=== PATIENT | female | born 1990 | race Caucasian/White ===

== ENCOUNTER 2016-07-29 00:23 | Inpatient (IN) | payer OTHER ==
[~2016-07-29] VITALS: Ht 175.3 cm; Wt 69.0 kg
[~2016-07-29 00:23] MED LIST: PRENTAB9 PO
[2016-07-29] MEDS ORDERED: LACTATED RINGER'S 1000 ML IV STA (01:13)
[2016-07-29] MEDS ORDERED: LR 1,000 ML IV SCH (01:13)
[2016-07-29] MEDS ORDERED: OXYTOCIN 30 UNITS IN 0.9% NaCl 500ML IV BAG (J2590) As Ordered ONE (01:15)
[2016-07-29 02:07] LABS: CORD GAS ABE A -4.8; CORD GAS HCO3 A 23.1 MEQ/L; CORD GAS PCO2 A 52.1 mmHg; CORD GAS PH A 7.264 UNITS; CORD GAS PO2 A 19.4 mmHg; CORD GAS SBC A 18.9 MEQ/L; CORD GAS TCO2 A 24.7 MEQ/L
[2016-07-29 02:08] LABS: CORD GAS ABE V -0.9; CORD GAS HCO3 V 23.8 MEQ/L; CORD GAS O2 SAT V 55.3 %; CORD GAS PCO2 V 39.7 mmHg; CORD GAS PH V 7.395 UNITS; CORD GAS PO2 V 22.9 mmHg; CORD GAS SBC V 22.4 MEQ/L
[2016-07-29] MEDS ORDERED: OXYTOCIN DRIP 30 UNITS in APPROPRIATE DILUENT 1 EA IV SCH (02:21)
[2016-07-29] MEDS ORDERED: DIBUCAINE 1% OINTMENT 30GM TOP PRN (02:30)
[2016-07-29] MEDS ORDERED: RHOGAM 300 MCG (1500 IU) INJ (J2790) IM SCH (02:30)
[2016-07-29] MEDS ORDERED: MEASLES,MUMPS,RUBELLA VACCINE INJ (MMR-II) (90707) SC SCH (02:30)
[2016-07-29] MEDS ORDERED: METHYLERGONOVINE MALEATE 0.2 MG TAB PO PRN (02:30)
[2016-07-29] MEDS ORDERED: DOCUSATE SODIUM 100 MG CAP PO PRN (02:30)
[2016-07-29] MEDS ORDERED: ACETAMINOPHEN 500 MG TAB PO PRN (02:30)
[2016-07-29] MEDS: IBUPROFEN 800 MG TAB PO PRN ×2 (02:32→21:05)
[2016-07-29 05:00] VITALS: BP 109/56
--- NOTE | 2016-07-29 07:23 | DN ---
DATE: 07/29/2016 Silvia is a 26-year-old, 2, para 2-0-0-2 now, who presented to labor and delivery in active labor. She progressed to full dilation at 0135. She pushed to a spontaneous vaginal delivery of a live female infant in occiput anterior (OA) position with restitution to right occiput transverse (ROT) position at 0140. There was a nuchal cord loose times one that was reduced with somersault maneuver at the time of delivery. The shoulders delivered with ease and the corpus immediately followed. The was placed on the maternal abdomen crying and active. Her mouth and nares were bulb suctioned. The cord was clamped times two after pulsations ceased and cut by the father of the baby. A spontaneous expulsion of an intact placenta with three-vessel cord by Myrick mechanism was at 0145. Uterine hemostasis was achieved with uterine fundal massage and IV Pitocin rapid infusion. Estimated blood loss 250 mL. Perineum and vagina were inspected and noted to be intact. There was no repair required. The female infant weighed 2910 grams, 6 pounds 8 ounces, of 9 and 9. Mom does plan to breastfeed her daughter and they have decided to name their daughter Latha. At the close of delivery, instrument counts and lap counts were verified.
[2016-07-29] MEDS: PRENATAL VITAMIN TAB PO SCH (08:04)
--- NOTE | 2016-07-29 08:11 | HPE ---
DATE OF ADMISSION: 07/29/2016 Silvia is a 26-year-old 2, para 1-0-0-1 with an EDC of 07/30/2016 based on last normal menstrual period and confirmed by first trimester ultrasound. She presents to labor and delivery today with report of painful contractions all day long that progressively became more uncomfortable and approximately 5 minutes apart at about midnight. She denies vaginal bleeding, leakage of fluid. Her fetus has been active. care was initiated at [facility] in the first trimester. course was complicated by early onset of growth restriction at 31 weeks, and she did undergo intense surveillance during her . The growth returned to normal state, approximately about a 30th percentile at term. OBSTETRICAL HISTORY: October 2013 at 40 weeks gestation she had a spontaneous vaginal delivery of a 6 pounds 14 ounces male. OBSTETRICAL LABORATORIES: Blood type A negative, antibody screen negative, rubella immune, VDRL nonreactive. Urine culture no growth. Hepatitis B surface antigen negative. HIV negative. Hepatitis C antibody nonreactive. Gonorrhea, chlamydia negative. She did decline genetic serum screening markers. Her gestational diabetic screening was 57. Group B streptococcus (GBS) was negative. PAST MEDICAL HISTORY: Seasonal allergies and childhood varicella. SURGERIES: Right ankle surgery, right foot surgery. FAMILY HISTORY: Heart disease. SOCIAL HISTORY: The patient is to an active duty soldier. He is at bedside and supportive. She is a nonsmoker. Denies alcohol and drug use. No history of sexually transmitted infections, and she denies history of abuse -- physical, sexual and emotional. ALLERGIES: Sensitivity to CODEINE. CURRENT MEDICATIONS: vitamin OBJECTIVE: Upon arrival to labor and delivery, she feels very uncomfortable. She is moaning and tensing with her contractions. Temperature is 97.2, pulse 59, respirations 22, blood pressure 101/59. heart rate 110, moderate variability, positive accelerations, positive variable decelerations with each contraction. She is kurt approximately every 5 minutes. Her abdomen is gravid, cephalic presentation. Estimated weight approximately 6 pounds. Sterile vaginal exam: Anterior lip bulging bag of water. ASSESSMENT: Intrauterine at 39 and 6 weeks gestation. heart rate category 2. Transition labor. PLAN: Admit the patient to labor and delivery . Clear liquid diet. Out of bed ad ismael. Labs as ordered. I do anticipate a spontaneous vaginal delivery.
[2016-07-29 18:00] VITALS: BP 112/69
[2016-07-30 05:45] VITALS: BP 126/70
[2016-07-30] MEDS: PRENATAL VITAMIN TAB PO SCH (08:08)
[2016-07-30] MEDS ORDERED: IBUP-1114 PO (10:24)
[2016-07-30] MEDS ORDERED: ACET50TA PO (10:24)
== END 2016-07-30 14:00 | disposition home or self-care (01) | DRG 775 ==
LOC: M LDO 00:23 → M OBS 01:10
PROVIDERS: ADMIT Advanced Practice Midwife; ATTEND Advanced Practice Midwife
PROC: 10E0XZZ Delivery of Products of Conception, External Approach (ICD-10-PCS; principal; 2016-07-29)
DX: O69.81X0 Labor and delivery complicated by cord around neck, without compression, not applicable or unspecified (principal); Z37.0 Single live birth; Z3A.39 39 weeks gestation of pregnancy

== ENCOUNTER 2017-08-25 07:48 | Emergency (ER) | payer OTHER ==
[2017-08-25] MEDS: MORPHINE 4 MG/ML 1ML VIAL (J2270) IV (08:36)
[2017-08-25] MEDS: ONDANSETRON 4MG/2ML VIAL (J2405) IV (08:36)
[2017-08-25 08:37] LABS: BASO % 0.4 % (0.0-1.0); EOS % 0.4 % (0.0-3.0); HEMATOCRIT 43.4 % (36.0-47.0); HEMOGLOBIN 15.3 g/dl (12.0-16.0); IMMATURE GRANULOCYTE % 0.4 % (0-3.0); LYMPH # 1.1 10^3/uL (1.5-6.5); LYMPH % 15.7 % (24.0-44.0); MEAN CORPUSCULAR HEMOGLOBIN 32.2 pg (27.0-33.0); MEAN CORPUSCULAR HGB CONC 35.3 g/dl (32.0-36.5); MEAN CORPUSCULAR VOLUME 91.4 fl (80.0-96.0); MONO # 0.5 10^3/uL (0.0-0.8); MONO % 6.8 % (0.0-5.0); NEUTROPHILS # 5.5 10^3/uL (1.8-7.7); NEUTROPHILS % 76.3 % (36.0-66.0); PLATELET COUNT, AUTOMATED 237 10^3/uL (150-450); RED BLOOD COUNT 4.75 10^6/uL (4.00-5.40); RED CELL DISTRIBUTION WIDTH 11.9 % (11.5-14.5); WHITE BLOOD COUNT 7.2 10^3/uL (4.0-10.0)
[2017-08-25] MEDS: NS 1,000 ML IV (08:38)
[2017-08-25 08:50] LABS: CONTROL LINE HCG INT CTR LINE PRESENT; HCG, SERUM QUALITATIVE NEGATIVE (NEGATIVE)
[2017-08-25 08:56] LABS: ALBUMIN 3.9 GM/DL (3.2-5.2); ALBUMIN/GLOBULIN RATIO 1.22 (1.00-1.93); ALKALINE PHOSPHATASE 63 U/L (45-117); ALT/SGPT 13 U/L (12-78); ANION GAP 7 MEQ/L (8-16); AST/SGOT 5 U/L (7-37); BILIRUBIN,DIRECT 0.2 MG/DL (0.0-0.2); BILIRUBIN,TOTAL 0.7 MG/DL (0.2-1.0); BLOOD UREA NITROGEN 14 MG/DL (7-18); CALCIUM LEVEL 8.8 MG/DL (8.5-10.1); CARBON DIOXIDE LEVEL 27 MEQ/L (21-32); CHLORIDE LEVEL 107 MEQ/L (98-107); CREATININE FOR GFR 0.75 MG/DL (0.55-1.30); GLOMERULAR FILTRATION RATE > 60.0 (>60); GLUCOSE, FASTING 89 MG/DL (70-100); LIPASE 116 U/L (73-393); POTASSIUM SERUM 3.7 MEQ/L (3.5-5.1); SODIUM LEVEL 141 MEQ/L (136-145); TOTAL PROTEIN 7.1 GM/DL (6.4-8.2)
[2017-08-25] MEDS: KETOROLAC 30 MG/ML VIAL (J1885) IV (09:08)
[2017-08-25] MEDS ORDERED: ISOVUE-370 76% 100ML VIAL (Q9967) As Ordered (10:18)
== END 2017-08-25 13:30 | disposition home or self-care (01) ==
LOC: M ED 07:48
DX: R10.30 Lower abdominal pain, unspecified (principal); R11.0 Nausea; Z88.5 Allergy status to narcotic agent
CPT/HCPCS: J2405

== ENCOUNTER → 2018-08-30 | Outpatient (REF) | payer OTHER ==
[~2018-08-30] MED LIST changes: +IBUP-1114 PO; +MAPA500T2 PO
== END ==
LOC: M SFHCPLAZ 15:42
PROVIDERS: ATTEND Physician Assistant
DX: M54.5 Low back pain (principal)